=== PATIENT | male | born 1985 | race Caucasian/White ===

== ENCOUNTER 2017-09-20 03:29 | Emergency (ER) | payer MEDICAID ==
[~2017-09-20] VITALS: Ht 180.3 cm; Wt 70.2 kg
[2017-09-20 03:31] VITALS: BP 147/90
[2017-09-23] MEDS ORDERED: DOLU50TA PO (10:11)
[2017-09-23] MEDS ORDERED: TRUVADA (10:11)
[2017-09-23] MEDS ORDERED: PROP20TA PO (10:11)
[2017-09-23] MEDS ORDERED: GABA-826 PO (10:11)
[2017-09-23] MEDS ORDERED: OMEP-110 PO (10:11)
== END 2017-09-20 04:47 | disposition left against medical advice (07) ==
LOC: ED 04:41
DX: R50.9 Fever, unspecified (principal); R51 Headache; Z53.21 Procedure and treatment not carried out due to patient leaving prior to being seen by health care provider